=== PATIENT | female | born 1950 | race Caucasian/White ===

== ENCOUNTER → 2022-12-01 10:32 | Outpatient (CLI) | payer MEDICARE, SELFPAY ==
--- NOTE | ~2022-12-01 | CT_ITS ---
EXAMINATION: CT abdomen pelvis wo/w con DATE: 12/01/2022 11:18 INDICATION: Gross hematuria TECHNIQUE: Computed tomography (CT) of the abdomen and pelvis was performed without intravenous contr ast. CT of the abdomen and pelvis was then performed with a total of 130 mL Omnipaque 350 intravenous contrast using a double-bolus technique for simultaneous opacification of the renal parenchyma and r enal collecting system. The dose-length product (DLP) was 1434.99 mGy-cm. Automated exposure control and iterative reconstruction technique were employed. COMPARISON: None FINDINGS: Minimal dependent atelectasis is present in the lung bases. The heart size is normal. Cysts of the liver measure up to 1.4 cm in the right hepatic lobe. The spleen, pancreas, gallbladder, and adrenal glands are normal. Hypoattenuating lesions in the kidneys, measuring up to 2 mm on the left, are too small to characterize but likely represent cysts. There is a 7 mm hyperdense cyst without sig nificant enhancement in the left kidney lower pole, likely proteinaceous cyst. No definite suspicious renal or urothelial lesion is identified. No stones are identified in the kidneys, ureters, or bladd er. No hydronephrosis or hydroureter. No pathologically enlarged abdominal or pelvic lymph nodes are identified. No free intraperitoneal gas or evidence of bowel obstruction. Colonic diverticulosis is p resent without evidence of diverticulitis. There is moderate lumbar spondylosis. IMPRESSION: 1. No CT correlate for the patient's symptoms. Reviewed, dictated and finalized at location B.
[2022-12-01 10:53] LABS: Estimated Glomerular Filt Rate > 60
== END ==
PROVIDERS: PCP Family Medicine
DX: R31.0 Gross hematuria (principal)
CPT/HCPCS: 74178; Q9967